=== PATIENT | male | born 1955 | race Caucasian/White ===

== ENCOUNTER 2018-11-16 09:10 | Observation (INO) | payer OTHER ==
[~2018-11-16] VITALS: Ht 175.3 cm; Wt 80.0 kg
--- NOTE | 2018-11-16 09:30 | NUR ---
PT DIRECT ADMIT FROM DANIEL LOZA WITH CP. PT PLACED ON MONITOR, MD AT BEDSIDE
--- NOTE | 2018-11-16 10:45 | NUR ---
PT RECIEVED ADMIT ORDERS TO TELE, NO AVAILABLE BEDS. PT UPDATED ON POC. ON MONITOR WITH FAMILY AT BEDSIDE. ADMITTING MD AT BEDSIDE. SHAYE, VSS, WCTM
--- NOTE | 2018-11-16 12:00 | NUR ---
PT RESTING IN BED, NO NEEDS AT THIS TIME. FAMILY AT BEDSIDE. VSS, WCTM
--- NOTE | 2018-11-16 13:05 | NUR ---
REPORT GIVEN TO BREAK RN
--- NOTE | 2018-11-16 13:35 | NUR ---
PT ORDERED CARDIAC DIET TRAY, PT UPDATED ON POC.
[2018-11-16] MEDS ORDERED: NITROGLYCERIN 0.4 MG BOTTLE (25 TABS) SL PRN (14:00)
[2018-11-16] MEDS ORDERED: NITROGLYCERIN 0.4 MG/SPRAY SL PRN (14:00)
[2018-11-16] MEDS ORDERED: morphine SULFATE 10 MG/ML, 1ML IVPush PRN (14:00)
[2018-11-16] MEDS ORDERED: ACETAMINOPHEN 325 MG TABLET PO PRN (14:00)
--- NOTE | 2018-11-16 14:33 | NUR ---
HPT OFF MONITOR, CHECKED ON PT AND HE STATED HE DISCONNECTED HIMSELF TO GET SOMEONE TO COME TO ROOM. UPSET HE DOESN'T HAVE ROOM OR FOOD YET. EXPLAINED POC TO PT AND CHECKED ON DIET TRAY. PT STATES IT'S OK. CALL LIGHT WAS WITHIN REACH, INSTRUCTED PT TO USE CALL LIGHT IF NEEDS ANYTING. YANETHTM.
[2018-11-16 15:41] LABS: TROPONIN I 0.038 ng/mL (0.000-0.045)
[2018-11-16] MEDS: PLEASE ENTER ALLERGIES MC SCH (16:00)
--- NOTE | 2018-11-16 17:09 | NUR ---
REPORT GIVEN TO YESSICA VEGA, PT UPDATED ON POC
[2018-11-16 17:30] VITALS: BP 116/7
[2018-11-16 20:00] VITALS: BP 108/74
[2018-11-16] MEDS ORDERED: POTA20TA6 PO (20:50)
[2018-11-16] MEDS ORDERED: ATOR80TA PO (20:50)
[2018-11-16] MEDS ORDERED: ASPI-430 PO (20:50)
[2018-11-16] MEDS ORDERED: LEVE100020 PO (20:50)
[2018-11-16] MEDS ORDERED: AMIO100T PO ×2 (20:50)
[2018-11-16] MEDS ORDERED: MAGN400T26 PO (20:50)
[2018-11-16] MEDS ORDERED: ATORVASTATIN 80 MG TABLET PO SCH (21:00)
[2018-11-16] MEDS ORDERED: LEVETIRACETAM 500 MG TABLET PO SCH (21:00)
[2018-11-16] MEDS: SODIUM CHLORIDE FLUSH 10ML SYR IVF SCH (21:41)
[2018-11-16] MEDS: CARVEDILOL 3.125 MG TABLET PO SCH (21:41)
[2018-11-17] MEDS: PLEASE ENTER ALLERGIES MC SCH
[2018-11-17 02:00] VITALS: BP 104/66
[2018-11-17] MEDS ORDERED: ASPIRIN 325 MG TABLET EC PO SCH (06:00)
[2018-11-17 06:13] LABS: CHOL/HDL RATIO 2.2; LDL/HDL RATIO 0.7 (0.5-3.0)
[2018-11-17 07:37] VITALS: BP 155/67
[2018-11-17] MEDS: CARVEDILOL 3.125 MG TABLET PO SCH (08:00)
[2018-11-17] MEDS: SODIUM CHLORIDE FLUSH 10ML SYR IVF SCH (08:01)
[2018-11-17 08:22] VITALS: BP 98/65
[2018-11-17] MEDS ORDERED: LEVETIRACETAM 500 MG TABLET PO SCH (09:00)
[2018-11-17] MEDS ORDERED: AMIODARONE 200 MG TABLET PO SCH (09:00)
[2018-11-17] MEDS ORDERED: REGADENOSON 0.4 MG/5 ML SYRINGE ONE (09:05)
[2018-11-17 12:35] VITALS: BP 119/75
[2018-11-17] MEDS ORDERED: LISI2.5T PO (16:02)
[2018-11-17 17:40] VITALS: BP 143/83
[2018-11-17] MEDS ORDERED: CARV3.1212 PO (17:56)
== END 2018-11-17 18:18 | disposition home or self-care (01) ==
LOC: ED 10:56 → EDIP 13:57 → 5SO 17:19
PROVIDERS: ADMIT Hospitalist; ATTEND Hospitalist
DX: I25.110 Atherosclerotic heart disease of native coronary artery with unstable angina pectoris (principal); I48.91 Unspecified atrial fibrillation; E78.5 Hyperlipidemia, unspecified; I10 Essential (primary) hypertension; F41.9 Anxiety disorder, unspecified; I21.4 Non-ST elevation (NSTEMI) myocardial infarction; I25.5 Ischemic cardiomyopathy; D68.69 Other thrombophilia; Z86.73 Personal history of transient ischemic attack (TIA), and cerebral infarction without residual deficits; Z82.49 Family history of ischemic heart disease and other diseases of the circulatory system; Z90.49 Acquired absence of other specified parts of digestive tract
CPT/HCPCS: 36415; 78452; 80061; 84484; 93005; 93017; 93306; 99284; A9502; C9898; G0378; J2785